=== PATIENT | female | born 1955 | race Two or more races ===

== ENCOUNTER → 2020-01-02 | Outpatient (CLI) | payer MEDICARE, MEDICAID ==
--- NOTE | 2020-01-02 16:16 | RADIOLOGY REPORT (SQ) ---
EXAM DESCRIPTION: BARIUM SWALLOW ESOPHAGUS IMAGES COMPLETED DATE/TIME: 01/02/2020 9:41 am REASON FOR STUDY: Z98.84 BARIATRIC SURGERY STATUS Z98.84 BARIATRIC SURGERY STATUS COMPARISON: None. TECHNIQUE: Under fluoroscopic guidance, patient ingested effervescent granules followed by thick and thin barium. Fluoroscopic spot images and routine radiographic images acquired and stored on PACS. 12 MM BARIUM TABLET GIVEN: Barium tablet passed through the esophagus and into the stomach without de lay. LIMITATIONS: None. FLUOROSCOPY TIME: FLUORO TIME: 1.8 minutes 13 images saved to PACS. FINDINGS: NEUROMUSCULAR COORDINATION OF SWALLOW: Normal. No aspiration. ESOPHAGEAL MOTILITY: Normal peristalsis. No esophageal spasm. ESOPHAGEAL MUCOSA: Normal mucosa without masses or ulceration. GASTRO-ESOPHAGEAL JUNCTION: Small hiatal hernia is present. Surgical changes consistent with gastric sleeve is seen, with a somewhat prominent fundal pouch. Marked gastroesophageal reflux was observed . NON-GI TRACT STRUCTURES: No significant finding. OTHER: No other significant finding. IMPRESSION: SMALL HIATAL HERNIA. MARKED GASTROESOPHAGEAL REFLUX. SURGICAL CHANGES CONSISTENT WITH GASTRIC SLEEVE, WITHOUT DEFINITE ABNORMALITIES. RECOMMENDATION: NONE COMMENT: Prior films not available for assessment of extent of surgical changes. Quality ID [id number]: Final reports for procedures using fluoroscopy that document radiation exposure carolyn mirian, or exposure time and number of fluorographic images (if radiation exposure indices are not avail able) TECHNICAL DOCUMENTATION: JOB ID: [id number] 2010 [employer]- All Rights Reserved Reading location - IP/workstation name: [email or web address] [id number]
== END ==
LOC: RAD 09:06 → EDBD 09:30
PROVIDERS: ATTEND Internal Medicine Geriatric Medicine
DX: K21.9 Gastro-esophageal reflux disease without esophagitis (principal); K44.9 Diaphragmatic hernia without obstruction or gangrene; Z98.84 Bariatric surgery status
CPT/HCPCS: 74220